=== PATIENT | male | born 1945 | race African-American/Black ===

== ENCOUNTER 2018-08-23 11:53 | Inpatient (IN) | payer MEDICARE, MEDICAID ==
[~2018-08-23] VITALS: Ht 182.9 cm; Wt 99.8 kg
[~2018-08-23 11:53] MED LIST: AMLO10TA80 PO; ASPI-1159 PO
[2018-08-23] MEDS ORDERED: TRIAMCINOLONE ACETONIDE 40MG/ML 1ML VIAL ONE (12:37)
[2018-08-23] MEDS ORDERED: DEXAMETHASONE 4MG/ML 1ML VIAL ONE (12:37)
[2018-08-23] MEDS ORDERED: GENTAMICIN SULF 40MG/ML 2ML VIAL ONE (12:37)
[2018-08-23] MEDS ORDERED: LIDOCAINE HCL/PF 1% 10 MG/ML 5ML VIAL ONE (12:38)
[2018-08-23] MEDS ORDERED: BUPIVACAINE HCL/PF 0.5% (5MG/ML) 10ML ONE (12:38)
[2018-08-23] MEDS ORDERED: LACTATED RINGERS 1,000 ML IV SCH (12:50)
[2018-08-23] MEDS ORDERED: FENTANYL CITRATE/PF 50MCG/ML 2ML VIAL ONE (14:05)
[2018-08-23] MEDS ORDERED: PROPOFOL 200MG/20ML VIAL IV ONE (14:06)
[2018-08-23] MEDS ORDERED: MIDAZOLAM HCL 2 MG/2 ML VIAL ONE (14:06)
[2018-08-23] MEDS ORDERED: CEFAZOLIN SODIUM 1000MG/VIAL ONE (14:07)
[2018-08-23] MEDS ORDERED: PHENYLEPHRINE HCL 10 MG/ML 1ML (IV VIAL) IV ONE (14:33)
[2018-08-23] MEDS ORDERED: METOCLOPRAMIDE HCL 10MG/2ML VIAL ONE (14:34)
[2018-08-23] MEDS ORDERED: ONDANSETRON HCL 4MG/2ML INJ ONE (14:34)
[2018-08-23] MEDS ORDERED: DOCUSATE SODIUM 100MG CAPSULE PO PRN (15:30)
[2018-08-23] MEDS ORDERED: DIPHENHYDRAMINE 50MG/ML VIAL IV PRN (15:30)
[2018-08-23] MEDS ORDERED: FENTANYL CITRATE/PF 50MCG/ML 2ML VIAL IV PRN (15:30)
[2018-08-23] MEDS ORDERED: CLONIDINE 0.1MG TABLET PO PRN (15:30)
[2018-08-23] MEDS ORDERED: MEPERIDINE HCL/PF 25MG/ML CPJ IV PRN (15:30)
[2018-08-23] MEDS ORDERED: MORPHINE SULFATE 4 MG/ML CPJ (NOT FOR IM USE) IV PRN (15:30)
[2018-08-23] MEDS ORDERED: ONDANSETRON HCL 4MG/2ML INJ IV PRN ×2 (15:30)
[2018-08-23] MEDS ORDERED: NA PHOS,M-B/NA PHOS,DI-BA ENEMA 118ML PR PRN (15:30)
[2018-08-23] MEDS ORDERED: ACETAMINOPHEN 325MG TABLET PO PRN (15:30)
[2018-08-23] MEDS ORDERED: MAGNESIUM/ALUMINUM HYDROXIDE/SIMETHICONE 30ML UDC PO PRN (15:30)
[2018-08-23] MEDS ORDERED: HYDROMORPHONE HCL/PF 2MG/ML CPJ IV PRN ×2 (15:30)
[2018-08-23 17:49] VITALS: BP 146/77
[2018-08-23 18:00] VITALS: BP 146/77
[2018-08-23 20:00] VITALS: BP 145/73
[2018-08-23] MEDS: CEFAZOLIN 1000MG PREMIX 50 ML IV SCH (21:16)
[2018-08-23] MEDS: OXYCODONE HCL/ACETAMINOPHEN 5/325MG TABLET PO PRN (21:16)
[2018-08-23] MEDS ORDERED: CEFAZOLIN SODIUM 1000MG/VIAL IV SCH (22:00)
[2018-08-23] MEDS: SODIUM CHLORIDE 0.9% INJ 3ML FLUSH IVF SCH (22:49)
[2018-08-23] MEDS ORDERED: ENOXAPARIN 40MG/0.4ML SYR SUBCUT SCH (23:00)
[2018-08-24] VITALS: BP 149/59
[2018-08-24 04:00] VITALS: BP 156/86
[2018-08-24] MEDS: SODIUM CHLORIDE 0.9% INJ 3ML FLUSH IVF SCH ×2 (05:36→13:41)
[2018-08-24] MEDS: CEFAZOLIN 1000MG PREMIX 50 ML IV SCH ×2 (05:37→11:55)
[2018-08-24] MEDS: OXYCODONE HCL/ACETAMINOPHEN 5/325MG TABLET PO PRN ×2 (05:47→12:19)
[2018-08-24 08:00] VITALS: BP 149/71
[2018-08-24 12:00] VITALS: BP 144/71
[2018-08-24] MEDS ORDERED: AMLODIPINE 5MG TABLET PO SCH ×2 (12:00)
[2018-08-24 16:00] VITALS: BP 146/60
[2018-08-24 17:50] VITALS: BP 146/60
== END 2018-08-24 18:50 | disposition home or self-care (01) | DRG 505 ==
LOC: OR 11:53 → 6EST 17:24
PROVIDERS: ADMIT Internal Medicine; ATTEND Internal Medicine
PROC: 0SSN04Z Reposition Left Metatarsal-Phalangeal Joint with Internal Fixation Device, Open Approach (ICD-10-PCS; principal; 2018-08-23 13:30)
DX: M21.612 Bunion of left foot (principal); M19.072 Primary osteoarthritis, left ankle and foot; I10 Essential (primary) hypertension; E66.9 Obesity, unspecified; M81.0 Age-related osteoporosis without current pathological fracture; Z86.73 Personal history of transient ischemic attack (TIA), and cerebral infarction without residual deficits; Z68.29 Body mass index [BMI] 29.0-29.9, adult
CPT/HCPCS: 36415; 73630; 82040; 82565; 88304; 88311; 97116; 97162; J0690; J1100; J1170; J1580; J2250; J2370; J2405; J2704; J2765; J3010; J3301; J3490

== ENCOUNTER 2023-10-05 17:49 | Emergency (ER) | payer MEDICARE, MEDICAID ==
[~2023-10-05] VITALS: Ht 185.4 cm; Wt 104.0 kg
[~2023-10-05 17:49] MED LIST changes: -ASPI-1159 PO; +ASPI-1497 PO
[2023-10-05 17:55] VITALS: BP 168/85; PULSE 103; RESP 20; TEMP 98.4; O2SAT 98
== END 2023-10-05 22:43 | disposition left against medical advice (07) ==
LOC: ER 17:49
DX: R33.9 Retention of urine, unspecified (principal); Z53.21 Procedure and treatment not carried out due to patient leaving prior to being seen by health care provider
CPT/HCPCS: 99281

== ENCOUNTER → 2024-09-16 | Day surgery (SDC) | payer MEDICARE, MEDICAID ==
[~2024-09-16] VITALS: Ht 182.9 cm; Wt 103.4 kg
[~2024-09-16] MED LIST changes: +ACETAMINOPHEN 325MG TABLET PO PRN; +DILT120C11 MT; +GLYCOPYRROLATE 0.2 MG/ML 2ML VIAL IV PRN; +HYDROMORPHONE HCL/PF 1MG/ML INJ IV PRN; +LIDOCAINE 2% 6ML GLYDO MM ONE; +ONDANSETRON HCL 4MG/2ML INJ IV PRN; +SOTA80TA PO; +TETRACAINE/BENZOCAINE/BUTAMBEN 20 GM SPRAY MM ONE
[2024-09-16] MEDS: SODIUM CHLORIDE 0.45% 500 ML IV ONE (07:43)
== END | disposition home or self-care (01) ==
LOC: CCL 06:43
PROVIDERS: ATTEND Specialist
DX: I48.92 Unspecified atrial flutter (principal); I48.19 Other persistent atrial fibrillation; I25.10 Atherosclerotic heart disease of native coronary artery without angina pectoris; I10 Essential (primary) hypertension; G47.33 Obstructive sleep apnea (adult) (pediatric); E66.9 Obesity, unspecified; Z79.01 Long term (current) use of anticoagulants; Z79.82 Long term (current) use of aspirin; Z79.899 Other long term (current) drug therapy; Z86.73 Personal history of transient ischemic attack (TIA), and cerebral infarction without residual deficits; Z98.890 Other specified postprocedural states
CPT/HCPCS: 92960; 93005; 93312